=== PATIENT | male | born 1965 | race Hispanic/Latino ===

== ENCOUNTER 2017-01-21 18:03 | Emergency (ER) | payer MEDICARE, OTHER ==
[2017-01-21 18:17] VITALS: BP 119/60; TEMP 98; BMI 25.0
--- NOTE | 2017-01-21 18:40 | ED PDOC ---
Arrival/HPI - General Chief Complaint: Lower Extremity Problem/Injury Time Seen by Provider: 01/21/17 18:33 Historian: Patient - History of Present Illness Narrative History of Present Illness (Text): 01/21/17 18:35 51yo male present with complaint of right lower leg/foot pain s/p traum 7days ago. states his right leg fell through a deck 7days ago. He notes that the swelling and pain improved, but he came to ED for evaluation. States he applied ice to the area. Did not take any analgesic for pain. Denies any other complaint. Past Medical History - Provider Review Nursing Documentation Reviewed: Yes - Past History Past History: Non-Contributing - Cardiac Hx Cardiac Disorders: No Hx Pacemaker: No - Pulmonary Hx Respiratory Disorders: No - Neurological Hx Neurological Disorder: No - HEENT Hx HEENT Disorder: Yes Hx Glaucoma: Yes - Renal Hx Renal Disorder: No - Endocrine/Metabolic Hx Endocrine Disorders: No - Hematological/Oncological Hx Blood Disorders: No Hx Blood Transfusions: No Hx Blood Transfusion Reaction: No - Integumentary Hx Dermatological Disorder: No - Musculoskeletal/Rheumatological Hx Musculoskeletal Disorders: Yes Hx Arthritis: Yes Other/Comment: spinal surgery - Gastrointestinal Hx Gastrointestinal Disorders: No - Genitourinary/Gynecological Hx Genitourinary Disorders: No - Psychiatric Hx Psychophysiologic Disorder: Yes Hx Depression: Yes Hx Emotional Abuse: No Hx Physical Abuse: No Hx Substance Use: No - Surgical History Other/Comment: spinal surgery - Anesthesia Hx Anesthesia: Yes Hx Anesthesia Reactions: Yes (WOKE UP DURING DENTAL WORK USING SODIUM PENTOTHAL) Hx Malignant Hyperthermia: No - Suicidal Assessment Feels Threatened In Home Enviroment: No Family/Social History - Physician Review Nursing Documentation Reviewed: Yes Family/Social History: Unknown Family HX Smoking Status: Heavy Smoker > 10 Cigarettes Daily Hx Alcohol Use: No (QUIT 2001; PAST ETOH ABUSE) Hx Substance Use: No Allergies/Home Meds Allergies/Adverse Reactions: Allergies iodine Allergy (Severe, Verified 01/21/17 18:17) ANAPHYLAXIS shellfish derived Allergy (Severe, Verified 01/21/17 18:17) ANAPHYLAXIS bee pollen Allergy (Verified 01/21/17 18:17) ANGIOEDEMA Home Medications: Home Meds Medication Instructions Recorded Confirmed Dorzolamide 2%/Timolol 0.5% 1 drop BOTHEYES BID 08/23/15 01/21/17 [Cosopt Ocumeter Plus 2%-0.5% 10 Ml] Paroxetine HCl [Paxil] 40 mg PO QAM 08/23/15 01/21/17 Bimatoprost [Lumigan 2.5 ml] 1 drop BOTHEYES HS 05/27/16 01/21/17 Brinzolamide/Brimonidine Tart 1 drop BOTHEYES BID 05/27/16 01/21/17 [Simbrinza 0.2%-1% 8 ml] Amoxicillin/Clavulanate [Augmentin 1 tab PO BID 06/03/16 01/21/17 875 MG-125 MG Tab] Review of Systems - Physician Review All systems were reviewed & negative as marked: Yes - Review of Systems Constitutional: Normal Eyes: Normal ENT: Normal Respiratory: Normal Cardiovascular: Normal Gastrointestinal: Normal Genitourinary Male: Normal Musculoskeletal: Arthralgias (Right leg/foot pain) Skin: Normal Neurological: Normal Endocrine: Normal Hemo/Lymphatic: Normal Psychiatric: Normal Physical Exam Vital Signs Reviewed: Yes Vital Signs Temp Pulse Resp BP Pulse Ox 01/21/17 18:14 98.0 F 86 16 119/60 98 Temperature: Afebrile Blood Pressure: Normal Pulse: Regular Respiratory Rate: Normal Appearance: Positive for: Well-Appearing, Non-Toxic, Comfortable Pain Distress: None Mental Status: Positive for: Alert and Oriented X 3 - Systems Exam Head: Present: Atraumatic, Normocephalic Pupils: Present: PERRL Extroacular Muscles: Present: EOMI Conjunctiva: Present: Normal Mouth: Present: Moist Mucous Membranes Neck: Present: Normal Range of Motion Respiratory/Chest: Present: Clear to Auscultation, Good Air Exchange. No: Respiratory Distress, Accessory Muscle Use Cardiovascular: Present: Regular Rate and Rhythm, Normal S1, S2. No: Murmurs Abdomen: Present: Normal Bowel Sounds. No: Tenderness, Distention, Peritoneal Signs Back: Present: Normal Inspection Upper Extremity: Present: Normal Inspection. No: Cyanosis, Edema Lower Extremity: Present: NORMAL PULSES, Normal ROM, Swelling (Approximately 4 x 4cm nontender hematoma noted on right mid lower anterior leg), Neurovascularly Intact, Other (Ecchymosis noted on right foot). No: Edema, CALF TENDERNESS, Tenderness, Deformity, Temperature Abnormalties Neurological: Present: GCS=15, CN II-XII Intact, Speech Normal Skin: Present: Warm, Dry, Normal Color. No: Rashes Psychiatric: Present: Alert, Oriented x 3, Normal Insight, Normal Concentration Medical Decision Making ED Course and Treatment: 01/21/17 19:49 Right tib/fib/foot xray - No acute fracture/dislocation noted Result was DW the pt. He have a normal gait in ED. He was advised to continue applying ice to the contusion. to take NSAID as needed for pain. Referred to his PMD/ortho. TRT ED for any new or worsening symptoms. - RAD Interpretation Radiology Orders: 01/21/17 18:33 TIBIA FIBULA RIGHT [RAD] Stat 01/21/17 18:34 FOOT RIGHT 3 VIEWS ROUTINE [RAD] Stat - Medication Orders Current Medication Orders: Discontinued Medications Ibuprofen (Motrin Tab) 600 mg PO STAT STA Stop: 01/21/17 18:35 Last Admin: 01/21/17 18:38 Dose: 600 mg Disposition/Present on Arrival - Present on Arrival Any Indicators Present on Arrival: No History of DVT/PE: No History of Uncontrolled Diabetes: No Urinary Catheter: No History of Decub. Ulcer: No History Surgical Site Infection Following: None - Disposition Have Diagnosis and Disposition been Completed?: Yes Diagnosis: Leg pain, Hematoma and contusion Disposition: HOME/ ROUTINE Disposition Time: 19:55 Patient Plan: Discharge Condition: STABLE Discharge Instructions (ExitCare): Hematoma (ED), Contusion in Adults (GEN) Additional Instructions: Apply ice to area multiple times daily follow up with your Doctor Return to ED for any new or worsening symptoms Prescriptions: Ibuprofen [Motrin Tab] 600 mg PO Q6 #20 tab
[2017-01-21 20:17] VITALS: PULSE 89; O2SAT 99
[2017-01-21 20:18] VITALS: RESP 18
--- NOTE | 2017-01-22 08:21 | RAD ---
PROCEDURE: Right Foot Radiographs. HISTORY: footr pain s/p trauma COMPARISON: None. FINDINGS: BONES: Normal. No fracture. JOINTS: Normal. SOFT TISSUES: Normal. OTHER FINDINGS: None. IMPRESSION: Normal right foot radiographs.
--- NOTE | 2017-01-22 09:30 | RAD ---
PROCEDURE: Radiographs of the right tibia and fibula. HISTORY: leg pain s/p trauma COMPARISON: None available. TECHNIQUE: Frontal and lateral views obtained. FINDINGS: BONES: No fracture or destructive lesion. JOINT SPACES: Unremarkable. OTHER FINDINGS: There is focal soft tissue swelling anterior to the tibia that is most likely a subcutaneous hematoma. IMPRESSION: No evidence of fracture
== END 2017-01-21 20:17 | disposition home or self-care (01) ==
LOC: ED 18:03
DX: S90.31XA Contusion of right foot, initial encounter (principal); W17.89XA Other fall from one level to another, initial encounter; Y93.89 Activity, other specified; Y92.89 Other specified places as the place of occurrence of the external cause; M79.604 Pain in right leg